=== PATIENT | male | born 1950 | race African-American/Black ===

== ENCOUNTER 2017-10-01 14:45 | Inpatient (IN) | payer OTHER ==
[2017-10-01 17:50] VITALS: BMI 18.4
--- NOTE | 2017-10-01 20:48 | HP ---
CIWA Score - CIWA Score Nausea/Vomitin-Mild Nausea/No Vomiting Muscle Tremors: 2 Anxiety: 2 Agitation: 2 Paroxysmal Sweats: 2 Orientation: 1-Uncertain about Date Tacttile Disturbances: 2-Mild Itch/Numbness/Burn (both feet) Auditory Disturbances: 0-None Visual Disturbances: 1-Very Mild Sensitivity Headache: 0-None Present CIWA-Ar Total Score: 13 Admission ROS S - HPI Chief Complaint: "I am here for detox, for the past 5 months I've been over doing it with the drinking and the crack, I have not been paying my bills" Allergies/Adverse Reactions: Allergies Allergy/AdvReac Type Severity Reaction Status Date / Time No Known Drug Allergies Allergy Verified 10/01/17 18:54 fish Allergy Severe Itching Uncoded 10/01/17 18:53 History of Present Illness: 67 yo male with hx alcohol, crack / cocaine dependence and occasional heroin use is here seeking detox after recent relapse March 2017. PMHX: HTN (takes no meds) , DM II on oral medication not compliant with medication, depression ( feeling lonely, miserable), insomnia, bipolar. Denies suicidal / homicidal ideation. Longest period period of time of sobriety 4 years. Last detox 15 years ago at [facility]. Exam Limitations: No Limitations - Ebola screening Have you traveled outside of the country in the last 21 days: No (N) Have you had contact with anyone from an Ebola affected area: No Have you been sick,other than usual withdrawal symptoms: No Do you have a fever: No - Review of Systems Constitutional: Loss of Appetite, Changes in sleep, Unintentional Wgt. Loss (7 lbs over the past two weeks) EENT: reports: No Symptoms Reported Respiratory: reports: No Symptoms reported Cardiac: reports: No Symptoms Reported GI: reports: Diarrhea, Poor Appetite, Poor Fluid Intake : reports: Frequency Musculoskeletal: reports: No Symptoms Reported Integumentary: reports: Pruritus Endocrine: reports: Increased Thirst, Increased Urine Hematology: reports: No Symptoms Reported Psychiatric: reports: Orientated x3, Depressed Other Systems: Reviewed and Negative Patient History - Patient Medical History Hx Anemia: No Hx Asthma: No Hx Chronic Obstructive Pulmonary Disease (COPD): No Hx Cancer: No Hx Cardiac Disorders: No Hx Congestive Heart Failure: No Hx Hypertension: Yes Hx Hypercholesterolemia: No Hx Pacemaker: No Hx Seizures: No Hx Dementia: No Hx Diabetes: Yes ([id number]) Hx Gastrointestinal Disorders: No Hx Liver Disease: No Hx Genitourinary Disorders: No Hx Sexually Transmitted Disorders: Yes (gonnorrhea ) Hx Renal Disease (ESRD): No Hx Thyroid Disease: No Hx Human Immunodeficiency Virus (HIV): No (last tested 3 years ago ) Hx Hepatitis C: No Hx Depression: Yes Hx Suicide Attempt: No Hx Bipolar Disorder: Yes Hx Schizophrenia: No - Patient Surgical History Past Surgical History: Yes Other Surgical History: right arm repair due to injury in 1984 Anesthesia Reaction: No - PPD History Documented Results: Positive w/o proof PPD to be Administered?: No - Reproductive History Patient is a Female of Child Bearing Age (11 -55 yrs old): No - Smoking Cessation Smoking history: Former smoker Have you smoked in the past 12 months: No Hx Chewing Tobacco Use: No Initiated information on smoking cessation: No - Substance & Tx. History Hx Alcohol Use: Yes Hx Substance Use: Yes Substance Use Type: Alcohol, Cocaine Hx Substance Use Treatment: Yes ([facility] 15 years ago) - Substances Abused Alcohol Route: Oral Frequency: Daily Amount used: Beer 3 quarts Age of first use: 19 Date of Last Use: 10/01/17 Crack Route: Smoking Frequency: Daily Amount used: $100 Age of first use: 40 Date of Last Use: 09/30/17 Family Disease History - Family Disease History Family Disease History: Diabetes: Father (, DM), Sister (alive ), Other: Father, Mother (alive, OA , stroke ) Admission Physical Exam [facility] - Vital Signs Vital Signs: Vital Signs - 24 hr 10/01/17 17:48 Temperature 97.0 F L Pulse Rate 98 H Respiratory 20 Rate Blood Pressure 147/96 - Physical General Appearance: Yes: Appropriately Dressed, Thin, Sweating, Anxious HEENTM: Yes: EOMI, Hearing grossly Normal, Normal ENT Inspection, Normocephalic , Normal Voice, AMENA, Pharynx Normal, Tm's normal Respiratory: Yes: Chest Non-Tender, Lungs Clear, Normal Breath Sounds, No Respiratory Distress, No Accessory Muscle Use Neck: Yes: Within Normal Limits Breast: Yes: Breast Exam Deferred Abdominal: Yes: Normal Bowel Sounds, Non Tender, Flat, Soft Genitourinary: Yes: Within Normal Limits Back: Yes: Normal Inspection Musculoskeletal: Yes: full range of Motion, Gait Steady, Pelvis Stable Extremities: Yes: Normal Capillary Refill, Normal Inspection, Normal Range of Motion, Non-Tender Neurological: Yes: fourth officer II-XII NML intact, Fully Oriented, Alert, Motor Strength 5/5, Depressed Affect Integumentary: Yes: Normal Color, Warm, Moist Lymphatic: Yes: Within Normal Limits - Diagnostic (1) Alcohol dependence with withdrawal, unspecified Current Visit: Yes Status: Acute (2) Diabetes mellitus with hyperglycemia Current Visit: Yes Status: Chronic Qualifiers: Diabetes mellitus type: type 2 Diabetes mellitus senior living insulin use: without terminal gauger supervisor use Qualified Code(s): E11.65 - Type 2 diabetes mellitus with hyperglycemia (3) Cocaine dependence Current Visit: Yes Status: Acute Qualifiers: Substance use status: uncomplicated Qualified Code(s): F14.20 - Cocaine dependence, uncomplicated (4) Depressed mood Current Visit: Yes Status: Acute (5) Weight decrease Current Visit: Yes Status: Acute (6) Elevated blood pressure reading in office with diagnosis of hypertension Current Visit: Yes Status: Acute Cleared for Admission [facility] - Detox or Rehab [facility] Level of Care: Medically Managed Detox Regimen/Protocol: Librium [facility] Breath Alcohol Content Breath Alcohol Content: 0.007 Urine Drug Screen - Results Drug Screen Negative: No Urine Drug Screen Results: AUGUSTINE-Cocaine
[2017-10-01] MEDS ORDERED: MAG HYDROX/AL HYDROX/SIMETH 30 ML UNIT-DOSE CUP PO PRN (20:58)
[2017-10-01] MEDS ORDERED: MAGNESIUM CITRATE 300 ML BOTTLE PO PRN (20:58)
[2017-10-01] MEDS ORDERED: MAGNESIUM HYDROX 2400MG/30ML ORAL SUSPENSION 30 ML CUP PO PRN (20:58)
[2017-10-01] MEDS ORDERED: chlordiazePOXIDE HCL 25 MG CAPSULE PO PRN (20:58)
[2017-10-01] MEDS ORDERED: MENTHOL/PHENOL 1 EACH UD MM PRN (20:58)
[2017-10-01] MEDS ORDERED: ACETAMINOPHEN 325 MG TABLET (FP) PO PRN (20:58)
[2017-10-01] MEDS ORDERED: guaiFENesin/D-METHORPHAN HB 10 ML UNIT-DOSE CUPS PO PRN (20:58)
[2017-10-01] MEDS ORDERED: chlordiazePOXIDE HCL 25 MG CAPSULE PO ONE (20:58)
[2017-10-01] MEDS ORDERED: LOPERAMIDE HCL 2 MG CAPSULE PO PRN (21:03)
[2017-10-01] MEDS ORDERED: hydrOXYzine PAMOATE 50 MG CAPSULE (FP) PO PRN (21:03)
[2017-10-01] MEDS ORDERED: IBUPROFEN 400 MG TABLET (FP) PO PRN (21:03)
[2017-10-01] MEDS ORDERED: P-EPHED 60MG/TRIPROLIDI 2.5MG TABLET PO PRN (21:04)
[2017-10-01] MEDS ORDERED: INSULIN (NOVOLOG) ASPART 100 UNITS/ML 10ML VIAL ONE (22:03)
[2017-10-01] MEDS: chlordiazePOXIDE HCL 25 MG CAPSULE PO SCH (22:23)
[2017-10-01] MEDS: THIAMINE HCL 100 MG TABLET (FP) PO SCH (22:27)
[2017-10-01] MEDS: INSULIN SLIDING SCALE (NOVOLOG) 1 VIAL SQ SCH (22:28)
[2017-10-01] MEDS: MELATONIN 5 MG TABLETS PO PRN (22:30)
--- NOTE | 2017-10-01 23:12 | PN ---
S Progress Note Note: Asymptomatic patient with abnormal ekg : WPW, vent rate 76 bpm. Patient denies cardiac hx, CP, SOB, vertigo, palpitations or edema. Vital Signs Temperature 96.3 F L 10/01/17 22:46 Pulse Rate 87 10/01/17 22:46 Respiratory Rate 18 10/01/17 22:46 Blood Pressure 137/98 10/01/17 22:46 O2 Sat by Pulse Oximetry (%) A/P patient AOX3 in no distress normal HR and rhythm no adventitious breath sounds skin intact, no edema - mild gait abnormality Plan: increase fluids fall precautions provide cane for ambulation repeat EKG patient advise to notify staff of worsening symptoms continue to monitor
[2017-10-02] MEDS: chlordiazePOXIDE HCL 25 MG CAPSULE PO SCH ×4 (05:54→22:36)
[2017-10-02] MEDS ORDERED: INSULIN (NOVOLOG) ASPART 100 UNITS/ML 10ML VIAL ONE ×2 (06:30→22:40)
[2017-10-02] MEDS: metFORMIN HCL 500 MG TABLET (FP) PO SCH ×2 (06:32→17:30)
[2017-10-02] MEDS: INSULIN SLIDING SCALE (NOVOLOG) 1 VIAL SQ SCH ×2 (06:45→12:00)
[2017-10-02] MEDS ORDERED: METHADONE HCL 10 MG TABLET PO SCH (08:30)
[2017-10-02] MEDS ORDERED: METHADONE 40 MG, METHADONE 20 MG PO ONE (09:15)
[2017-10-02 10:17] LABS: HEMATOCRIT 39.5 % (35.4-49); HEMOGLOBIN 13.7 GM/dL (11.7-16.9); MCH 32.5 pg (25.7-33.7); MCHC 34.7 g/dl (32.0-35.9); MEAN CELL VOLUME 93.8 fl (80-96); PLATELET COUNT 195 K/MM3 (134-434); RBC 4.22 M/mm3 (4.00-5.60); RDW 13.1 % (11.9-15.9); WHITE BLOOD COUNT 5.1 K/mm3 (4.0-10.0)
[2017-10-02 10:26] LABS: CHLORIDE 103 mmol/L (98-107); POTASSIUM 3.8 mmol/L (3.5-5.1); SODIUM 136 mmol/L (136-145)
[2017-10-02] MEDS: PRENATAL VITAMINS W/ FOLIC ACID TABLET (FP) PO SCH (10:48)
--- NOTE | 2017-10-02 11:34 | PN ---
S CIWA - CIWA Score Nausea/Vomitin Muscle Tremors: 3 Anxiety: 3 Agitation: 2 Paroxysmal Sweats: 1-Minimal Palms Moist Orientation: 0-Oriented Tacttile Disturbances: 1-Very Mild Itch/Numbness Auditory Disturbances: 1-Very Mild Visual Disturbances: 0-None Headache: 2-Mild CIWA-Ar Total Score: 16 S Progress Note (SOAP) Subjective: ALERT,IRRITABLE,ANXIOUS,INTERRUPTED SLEEP,TREMOR,PAIN IN THE BODY Objective: 10/02/17 11:31 Vital Signs Temperature 97.8 F 10/02/17 10:09 Pulse Rate 107 H 10/02/17 10:09 Respiratory Rate 20 10/02/17 10:09 Blood Pressure 120/71 10/02/17 10:09 O2 Sat by Pulse Oximetry (%) EKG NSR,LVH PROLONG QT 386/467 NO CHEST PAIN,NO SOB,NO DIZZINESS Laboratory Last Values WBC 5.1 K/mm3 (4.0-10.0) 10/02/17 07:30 RBC 4.22 M/mm3 (4.00-5.60) 10/02/17 07:30 Hgb 13.7 GM/dL (11.7-16.9) 10/02/17 07:30 Hct 39.5 % (35.4-49) 10/02/17 07:30 MCV 93.8 fl (80-96) 10/02/17 07:30 MCH 32.5 pg (25.7-33.7) 10/02/17 07:30 MCHC 34.7 g/dl (32.0-35.9) 10/02/17 07:30 RDW 13.1 % (11.9-15.9) 10/02/17 07:30 Plt Count 195 K/MM3 (134-434) 10/02/17 07:30 MPV 10.0 fl (7.5-11.1) 10/02/17 07:30 POC Glucometer 330 UNITS (80-120) 10/02/17 05:56 LABS PENDING Assessment: 10/02/17 11:33 WITHDRAWAL SYMPTOM Plan: CONTINUE DETOX,BGM MONITORING WITH INSULIN COVERAGE
--- NOTE | 2017-10-02 11:51 | EKG ---
Test Reason : Blood Pressure : / mmHG Vent. Rate : 076 BPM Atrial Rate : 076 BPM P-R Int : 132 ms QRS Dur : 098 ms QT Int : 412 ms P-R-T Axes : 074 -05 122 degrees QTc Int : 463 ms NORMAL SINUS RHYTHM VENTRICULAR PRE-EXCITATION, WPW PATTERN TYPE A ABNORMAL ECG NO PREVIOUS ECGS AVAILABLE Confirmed by TOM BROUSSARD MD ([id number]) on 10/02/2017 11:51:22 AM Referred By: Confirmed By:TOM BROUSSARD MD
[2017-10-02 11:52] LABS: ALBUMIN 2.7 g/dl (3.4-5.0); ALK PHOS 185 U/L (45-117); BILIRUBIN,TOTAL 0.5 mg/dL (0.2-1.0); BLOOD UREA NITROGEN 17 mg/dL (7-18); CALCIUM 8.5 mg/dL (8.5-10.1); CREATININE 0.9 mg/dL (0.7-1.3); SGOT/AST 102 U/L (15-37); SGPT/ALT 120 U/L (12-78); TOT PROT 6.2 g/dl (6.4-8.2)
--- NOTE | 2017-10-02 11:52 | CONSULT ---
[facility] Psychiatric Consult - Data Date of interview: 10/02/17 Admission source: [facility] Identifying data: This is 67 years old AA single father of 2 adults,resides in Supportive Housing,on SSI. Substance Abuse History: patient reports drinking since 19 yo,3 quarts of beer daily,Cocaine/crack since 40 yo,spending $100 daily. Psychiatric History: Reports first contact with psychiatrist about 7 years ago when he was admitted to [facility] in [facility] due to severe depression, anxiety,alcohol,drug use.He was dx with De;pressive disorder and placed on psychotropics.Patient reports 6 more admissions in the past,not recently.he used to see a psychiatrist on outpatient basis in one of the Drug Rehabilitation program in [facility].Patient was on wellbutrin 150 mg po daily and Seroquel 100 mg po hs.He stopped his meds a few months ago and is not willing to restart at present,stating that he is good without psychitric medications. Physical/Sexual Abuse/Trauma History: denies Psychiatric Findings - Problem List ([place] 1, 2,3) (1) Cocaine dependence Current Visit: Yes Status: Chronic Qualifiers: Substance use status: uncomplicated Qualified Code(s): F14.20 - Cocaine dependence, uncomplicated (2) Essential hypertension Current Visit: Yes Status: Chronic (3) Diabetes mellitus with hyperglycemia Current Visit: Yes Status: Chronic Qualifiers: Diabetes mellitus type: type 2 Diabetes mellitus ad terminal makeup operator insulin use: without ad terminal makeup operator use Qualified Code(s): E11.65 - Type 2 diabetes mellitus with hyperglycemia (4) Alcohol dependence Current Visit: Yes Status: Acute (5) Substance induced mood disorder Current Visit: Yes Status: Chronic - Initial Treatment Plan Initial Treatment Plan: Will monitor progress.Consider to restart antidepressnats if needed.
--- NOTE | 2017-10-02 12:02 | PN ---
S Progress Note Note: BGM IS 395 WILL GIVE NOVOLOG 12 UNIT SQ,ON INSULIN COVERAGE ACHS, PLESE BE NOTED THAT THIS PATIENT IS NOT ON METHADONE MAINTENANCE
[2017-10-02 12:06] LABS: ANION GAP 7 (8-16); CO2 26 mmol/L (21-32)
[2017-10-02 12:10] LABS: GLUCOSE,RANDOM 386 mg/dL (74-106)
[2017-10-02] MEDS ORDERED: INSULIN (NOVOLOG) ASPART 100 UNITS/ML 10ML VIAL SQ ONE (12:30)
--- NOTE | 2017-10-02 14:32 | EKG ---
Test Reason : Blood Pressure : / mmHG Vent. Rate : 088 BPM Atrial Rate : 088 BPM P-R Int : 184 ms QRS Dur : 080 ms QT Int : 386 ms P-R-T Axes : 065 003 118 degrees QTc Int : 467 ms NORMAL SINUS RHYTHM MODERATE VOLTAGE CRITERIA FOR LVH, MAY BE NORMAL VARIANT T WAVE ABNORMALITY, CONSIDER INFERIOR ISCHEMIA PROLONGED QT ABNORMAL ECG WHEN COMPARED WITH ECG OF 01-OCT-2017 22:32, [id number] IS NO LONGER PRESENT Confirmed by BOBO MILLER, TOM ([id number]) on 10/02/2017 2:31:43 PM Referred By: Confirmed By:TOM BROUSSARD MD
[2017-10-02] MEDS: INSULIN (NOVOLOG) ASPART 100 UNITS/ML 10ML VIAL SQ SCH ×2 (17:13→22:36)
[2017-10-02] MEDS: THIAMINE HCL 100 MG TABLET (FP) PO SCH (22:36)
[2017-10-02 23:47] LABS: URINE APPEARANCE CLEAR; URINE BILIRUBIN NEGATIVE (<2.0 mg/dL); URINE BLOOD NEGATIVE (NEGATIVE); URINE COLOR LTYELLOW; URINE GLUCOSE (UA) 3+ (NEGATIVE); URINE KETONE NEGATIVE (NEGATIVE); URINE LEUK ESTERASE NEGATIVE (NEGATIVE); URINE NITRITE NEGATIVE (NEGATIVE); URINE PROTEIN NEGATIVE (NEGATIVE); URINE UROBILINOGEN NEGATIVE mg/dL (0.2-1.0)
[2017-10-03] MEDS ORDERED: METHADONE 40 MG, METHADONE 20 MG PO SCH (06:00)
[2017-10-03] MEDS: chlordiazePOXIDE HCL 25 MG CAPSULE PO SCH ×3 (06:23→17:51)
[2017-10-03] MEDS: metFORMIN HCL 500 MG TABLET (FP) PO SCH ×2 (06:24→17:18)
[2017-10-03] MEDS ORDERED: INSULIN (NOVOLOG) ASPART 100 UNITS/ML 10ML VIAL ONE ×4 (06:34→22:47)
[2017-10-03] MEDS: INSULIN (NOVOLOG) ASPART 100 UNITS/ML 10ML VIAL SQ SCH ×4 (06:52→22:44)
[2017-10-03] MEDS: PRENATAL VITAMINS W/ FOLIC ACID TABLET (FP) PO SCH (11:22)
--- NOTE | 2017-10-03 11:34 | PN ---
[facility] CIWA - CIWA Score Nausea/Vomitin Muscle Tremors: 3 Anxiety: 2 Agitation: 2 Paroxysmal Sweats: 1-Minimal Palms Moist Orientation: 0-Oriented Tacttile Disturbances: 1-Very Mild Itch/Numbness Auditory Disturbances: 1-Very Mild Visual Disturbances: 0-None Headache: 2-Mild CIWA-Ar Total Score: 15 S Progress Note (SOAP) Subjective: ALERT,IRRITABLE,ANXIOUS,INTERRUPTED SLEEP,ACHING PAIN Objective: 10/03/17 11:31 Vital Signs Temperature 98.6 F 10/03/17 10:11 Pulse Rate 88 10/03/17 10:11 Respiratory Rate 18 10/03/17 10:11 Blood Pressure 110/78 10/03/17 10:11 O2 Sat by Pulse Oximetry (%) BGM 281 Laboratory Results - last 24 hr 10/01/17 10/02/17 10/02/17 23:20 07:30 07:30 Sodium 136 Potassium 3.8 Chloride 103 Carbon Dioxide 26 Anion Gap 7 L BUN 17 Creatinine 0.9 Creat Clearance w eGFR > 60 POC Glucometer Random Glucose 386 H* Calcium 8.5 Total Bilirubin 0.5 AST 102 H ALT 120 H Alkaline Phosphatase 185 H Total Protein 6.2 L Albumin 2.7 L Urine Color Ltyellow Urine Appearance Clear Urine pH 5.0 Ur Specific [place] 1.023 Urine Protein Negative Urine Glucose (UA) 3+ H Urine Ketones Negative Urine Blood Negative Urine Nitrite Negative Urine Bilirubin Negative Urine Urobilinogen Negative Ur Leukocyte Esterase Negative RPR Titer HIV 1&2 Antibody Screen Negative HIV P24 Antigen Negative 10/02/17 10/02/17 10/02/17 07:30 11:55 16:35 Sodium Potassium Chloride Carbon Dioxide Anion Gap BUN Creatinine Creat Clearance w eGFR POC Glucometer 395 138 Random Glucose Calcium Total Bilirubin AST ALT Alkaline Phosphatase Total Protein Albumin Urine Color Urine Appearance Urine pH Ur Specific [place] Urine Protein Urine Glucose (UA) Urine Ketones Urine Blood Urine Nitrite Urine Bilirubin Urine Urobilinogen Ur Leukocyte Esterase RPR Titer Nonreactive HIV 1&2 Antibody Screen HIV P24 Antigen 10/02/17 10/03/17 22:35 05:55 Sodium Potassium Chloride Carbon Dioxide Anion Gap BUN Creatinine Creat Clearance w eGFR POC Glucometer 246 281 Random Glucose Calcium Total Bilirubin AST ALT Alkaline Phosphatase Total Protein Albumin Urine Color Urine Appearance Urine pH Ur Specific [place] Urine Protein Urine Glucose (UA) Urine Ketones Urine Blood Urine Nitrite Urine Bilirubin Urine Urobilinogen Ur Leukocyte Esterase RPR Titer HIV 1&2 Antibody Screen HIV P24 Antigen Assessment: 10/03/17 11:41 WITHDRAWAL SYMPTOM Plan: CONTINUE DETOX ,BGM MONITORING
[2017-10-03] MEDS: chlordiazePOXIDE 5 MG CAPSULE PO SCH (22:33)
[2017-10-03] MEDS: THIAMINE HCL 100 MG TABLET (FP) PO SCH (22:33)
[2017-10-04] MEDS: chlordiazePOXIDE 5 MG CAPSULE PO SCH ×3 (06:23→17:55)
[2017-10-04] MEDS: metFORMIN HCL 500 MG TABLET (FP) PO SCH ×2 (06:25→17:25)
[2017-10-04] MEDS ORDERED: INSULIN (NOVOLOG) ASPART 100 UNITS/ML 10ML VIAL ONE ×3 (06:28→22:38)
[2017-10-04] MEDS: INSULIN (NOVOLOG) ASPART 100 UNITS/ML 10ML VIAL SQ SCH ×4 (07:27→22:36)
--- NOTE | 2017-10-04 10:56 | PN ---
S Progress Note (SOAP) Subjective: ALERT,IRRITABLE,INTERRUPTED SLEEP Objective: 10/04/17 10:52 Vital Signs Temperature 98.1 F 10/04/17 09:43 Pulse Rate 87 10/04/17 09:43 Respiratory Rate 18 10/04/17 09:43 Blood Pressure 119/79 10/04/17 09:43 O2 Sat by Pulse Oximetry (%) BGM 318 10/04/17 10:53 Laboratory Last Values WBC 5.1 K/mm3 (4.0-10.0) 10/02/17 07:30 RBC 4.22 M/mm3 (4.00-5.60) 10/02/17 07:30 Hgb 13.7 GM/dL (11.7-16.9) 10/02/17 07:30 Hct 39.5 % (35.4-49) 10/02/17 07:30 MCV 93.8 fl (80-96) 10/02/17 07:30 MCH 32.5 pg (25.7-33.7) 10/02/17 07:30 MCHC 34.7 g/dl (32.0-35.9) 10/02/17 07:30 RDW 13.1 % (11.9-15.9) 10/02/17 07:30 Plt Count 195 K/MM3 (134-434) 10/02/17 07:30 MPV 10.0 fl (7.5-11.1) 10/02/17 07:30 Sodium 136 mmol/L (136-145) 10/02/17 07:30 Potassium 3.8 mmol/L (3.5-5.1) 10/02/17 07:30 Chloride 103 mmol/L (98-107) 10/02/17 07:30 Carbon Dioxide 26 mmol/L (21-32) 10/02/17 07:30 Anion Gap 7 (8-16) L 10/02/17 07:30 BUN 17 mg/dL (7-18) 10/02/17 07:30 Creatinine 0.9 mg/dL (0.7-1.3) 10/02/17 07:30 Creat Clearance w eGFR > 60 (>60) 10/02/17 07:30 POC Glucometer 318 UNITS (80-120) 10/04/17 06:06 Random Glucose 386 mg/dL (74-106) H* 10/02/17 07:30 Hemoglobin A1c % 10.0 % (4.8-6.0) H 10/03/17 06:00 Calcium 8.5 mg/dL (8.5-10.1) 10/02/17 07:30 Total Bilirubin 0.5 mg/dL (0.2-1.0) 10/02/17 07:30 AST 102 U/L (15-37) H 10/02/17 07:30 ALT 120 U/L (12-78) H 10/02/17 07:30 Alkaline Phosphatase 185 U/L (45-117) H 10/02/17 07:30 Total Protein 6.2 g/dl (6.4-8.2) L 10/02/17 07:30 Albumin 2.7 g/dl (3.4-5.0) L 10/02/17 07:30 Urine Color Ltyellow 10/01/17 23:20 Urine Appearance Clear 10/01/17 23:20 Urine pH 5.0 (5.0-8.0) 10/01/17 23:20 Ur Specific [place] 1.023 (1.001-1.035) 10/01/17 23:20 Urine Protein Negative (NEGATIVE) 10/01/17 23:20 Urine Glucose (UA) 3+ (NEGATIVE) H 10/01/17 23:20 Urine Ketones Negative (NEGATIVE) 10/01/17 23:20 Urine Blood Negative (NEGATIVE) 10/01/17 23:20 Urine Nitrite Negative (NEGATIVE) 10/01/17 23:20 Urine Bilirubin Negative (<2.0 mg/dL) 10/01/17 23:20 Urine Urobilinogen Negative mg/dL (0.2-1.0) 10/01/17 23:20 Ur Leukocyte Esterase Negative (NEGATIVE) 10/01/17 23:20 RPR Titer Nonreactive (NONREACTIVE) 10/02/17 07:30 HIV 1&2 Antibody Screen Negative 10/02/17 07:30 HIV P24 Antigen Negative 10/02/17 07:30 10/04/17 10:53 HB A1C IS 10 Assessment: 10/04/17 10:56 WITHDRAWAL SYMPTOM Plan: CONTINUE DETOX,DISCHARGE IN AM
[2017-10-04] MEDS: PRENATAL VITAMINS W/ FOLIC ACID TABLET (FP) PO SCH (10:58)
[2017-10-04] MEDS ORDERED: INSULIN (NOVOLOG) ASPART 100 UNITS/ML 10ML VIAL SQ SCH (16:30)
[2017-10-04] MEDS: chlordiazePOXIDE HCL 10 MG CAPSULE PO SCH (22:36)
[2017-10-04] MEDS: THIAMINE HCL 100 MG TABLET (FP) PO SCH (22:36)
[2017-10-05] MEDS: MELATONIN 5 MG TABLETS PO PRN ×2 (00:39→22:35)
[2017-10-05] MEDS: chlordiazePOXIDE HCL 10 MG CAPSULE PO SCH ×3 (05:28→17:02)
[2017-10-05] MEDS ORDERED: INSULIN (NOVOLOG) ASPART 100 UNITS/ML 10ML VIAL ONE ×4 (07:21→22:34)
[2017-10-05] MEDS: INSULIN (NOVOLOG) ASPART 100 UNITS/ML 10ML VIAL SQ SCH ×4 (07:22→22:35)
[2017-10-05] MEDS: metFORMIN HCL 500 MG TABLET (FP) PO SCH ×2 (07:22→17:01)
[2017-10-05] MEDS: PRENATAL VITAMINS W/ FOLIC ACID TABLET (FP) PO SCH (11:04)
--- NOTE | 2017-10-05 14:39 | PN ---
[facility] Progress Note (SOAP) Subjective: denies complaints states feel good Objective: 10/05/17 14:36 A & o x 3 No distress noted ambulating steadily with a cane Vital Signs Period Temp Pulse Resp BP Sys/Nicole Pulse Ox Last 24 Hr 98.1 F-99.7 F 80-99 - 101-134/69-91 Assessment: 10/05/17 14:37 withdrawal sx Plan: for discharge
--- NOTE | 2017-10-05 14:45 | DS ---
[facility] Detox Discharge Summary Admission Date: 10/01/17 Discharge Date: 10/05/17 - History Additional Comments: pt being d/c home States he will go to his sister's in [place] will try to get into a rehab facility in the week Info provided to pt by the counselor Prescription metformin sent to pt's pharmacy [facility] - Physical Exam Results Vital Signs: Vital Signs Temperature 98.1 F 10/05/17 13:58 Pulse Rate 87 10/05/17 13:58 Respiratory Rate 16 10/05/17 13:58 Blood Pressure 109/83 10/05/17 13:58 O2 Sat by Pulse Oximetry (%) - Medication Discharge Medications: Ambulatory Orders Bupropion HCl [Wellbutrin -] 75 mg PO DAILY 10/01/17 Quetiapine Fumarate [Seroquel -] 50 mg PO BID 10/01/17 Metformin HCl [Glucophage] 500 mg PO BID 30 Days #60 tablet 10/05/17 - Diagnosis (1) Alcohol dependence with withdrawal, unspecified Current Visit: Yes Status: Acute (2) Cocaine dependence Current Visit: Yes Status: Chronic Qualifiers: Substance use status: uncomplicated Qualified Code(s): F14.20 - Cocaine dependence, uncomplicated (3) Diabetes mellitus with hyperglycemia Current Visit: Yes Status: Chronic Qualifiers: Diabetes mellitus type: type 2 Diabetes mellitus meterman insulin use: without nursing home use Qualified Code(s): E11.65 - Type 2 diabetes mellitus with hyperglycemia (4) Substance induced mood disorder Current Visit: Yes Status: Chronic (5) Essential hypertension Current Visit: Yes Status: Chronic - AMA Did Patient Leave Against Medical Advice: No
[2017-10-05 22:31] VITALS: BP 114/82; PULSE 85; TEMP 98.2
[2017-10-05] MEDS: THIAMINE HCL 100 MG TABLET (FP) PO SCH (22:32)
== END 2017-10-05 22:30 | disposition home or self-care (01) | DRG 897 ==
LOC: YASAS 14:45 → Y6N 20:14
PROVIDERS: ADMIT Surgery; ATTEND Surgery
PROC: HZ2ZZZZ Detoxification Services for Substance Abuse Treatment (ICD-10-PCS; principal; 2017-10-01)
DX: F10.230 Alcohol dependence with withdrawal, uncomplicated (principal); F14.20 Cocaine dependence, uncomplicated; Z68.1 Body mass index [BMI] 19.9 or less, adult; F19.24 Other psychoactive substance dependence with psychoactive substance-induced mood disorder; F31.9 Bipolar disorder, unspecified; I10 Essential (primary) hypertension; E11.9 Type 2 diabetes mellitus without complications; Z79.84 Long term (current) use of oral hypoglycemic drugs; R63.4 Abnormal weight loss; Z86.19 Personal history of other infectious and parasitic diseases
CPT/HCPCS: 36415; 71045-TC-FY; 80053; 81003; 82962; 83036; 85027; 86593; 87389; 93005; 93010